=== PATIENT | female | born 1995 | race Caucasian/White ===

== ENCOUNTER 2019-05-07 11:26 | Emergency (ER) | payer BC ==
[~2019-05-07] VITALS: Ht 160 cm; Wt 50.1 kg
[2019-05-07 11:30] VITALS: Ht 160 cm; Wt 50.1 kg
[2019-05-07] MEDS ORDERED: LORA0.5T PO (12:41)
[2019-05-07] MEDS ORDERED: TEMA15CA6 PO (12:41)
[2019-05-07] MEDS ORDERED: DEXM10TA PO (12:41)
[2019-05-07] MEDS ORDERED: DEXM20CP PO (12:41)
[2019-05-07] MEDS ORDERED: NORE1TAB12 PO (12:41)
[2019-05-07 13:16] VITALS: BP 126/79; PULSE 79; RESP 16
--- NOTE | 2019-05-07 13:33 | ERD ---
ER Documentation Chief Complaint Chief Complaint TOOK 4 RESTORIL AND 3 OTC SLEEPING MEDS AND IS HAVING HALLUCINATIONS NOW HPI Patient is a 23-year-old female with depression and anxiety who presents with an accidental overdose. She said that she took her 3 tablets of Restoril at 11:30 PM last night to go to sleep. This is her usual dose. She could not sleep and so at 3:30 AM she took 4 [id number] "sleep meds" but she does not know what medications they were. This morning she started with visual and audio hallucinations. She is still feeling the effects of the medicine and feels like her body feels heavy and that she is having trouble regulating the volume of her voice. She denies suicidal or homicidal ideation. She does want to sleep this was not a suicide attempt. Upon review of old medical records this is the patient's first visit to the emergency department. Her primary doctor is Dr. Christina Mckeon and she does have a psychiatrist. ROS All systems reviewed and are negative except as per history of present illness. Medications Home Meds Reported Medications Noreth A-Et Estra/Fe Fumarate (LO LOESTRIN FE 1-10 TABLET) 1 Each Tablet, 1 TAB PO DAILY, TAB 05/07/19 Lorazepam* (Lorazepam*) 0.5 Mg Tablet, 0.5 MG PO HS PRN for ANXIETY, TAB 05/07/19 Temazepam* (Restoril*) 15 Mg Capsule, 15 MG PO HS PRN for INSOMNIA, CAP 05/07/19 Dexmethylphenidate Hcl (Focalin) 10 Mg Tablet, 10 MG PO TID, TAB 05/07/19 Dexmethylphenidate Hcl (Focalin Xr) 20 Mg Cpmp.50.50, 20 MG PO DAILY, #30 CAP 05/07/19 Allergies Allergies: Coded Allergies: No Known Allergy (Unverified , 05/07/19) PMhx/Soc History of Surgery: Yes (BRAIN TUMOUR REMOVAL ) Anesthesia Reaction: No Hx Neurological Disorder: Yes (BRAIN TUMOUR ) Hx Respiratory Disorders: No Hx Cardiac Disorders: No Hx Psychiatric Problems: Yes (ANXIETY , DEPRESSION ) Hx Miscellaneous Medical Probl: No Hx Alcohol Use: No Hx Substance Use: No Hx Tobacco Use: No Smoking Status: Never smoker FmHx Family History: No diabetes Physical Exam Vitals Vital Signs Date Temp Pulse Resp B/P (MAP) Pulse Ox O2 O2 Flow FiO2 Time Delivery Rate 7/29/19 98.1 79 16 126/79 100 Room Air 13:16 (95) 05/07/19 99.1 71 16 148/91 100 11:30 (110) Physical Exam Const: No acute distress Head: Atraumatic Eyes: Normal Conjunctiva ENT: Normal External Ears, Nose and Mouth. Neck: Full range of motion. No meningismus. Resp: Clear to auscultation bilaterally Cardio: Regular rate and rhythm, no murmurs Abd: Soft, non tender, non distended. Normal bowel sounds Skin: No petechiae or rashes Back: No midline or flank tenderness Ext: No cyanosis, or edema Neur: Awake and alert Psych: Normal Mood and Affect, negative for suicidal or homicidal ideation Result Diagram: 05/07/19 1231 05/07/19 1231 Results 24 hrs Laboratory Tests Test 05/07/19 12:22 05/07/19 12:31 05/07/19 12:36 Urine Opiates Screen Negative Urine Barbiturates Negative Urine Amphetamines Screen Negative Urine Benzodiazepines Screen Positive Urine Cocaine Screen Negative Urine Cannabinoids Positive White Blood Count 7.2 10^3/ul Red Blood Count 4.16 10^6/ul Hemoglobin 13.7 g/dl Hematocrit 41.1 % Mean Corpuscular Volume 98.8 fl Mean Corpuscular Hemoglobin 32.9 pg Mean Corpuscular 33.3 g/dl Hemoglobin Concent Red Cell Distribution Width 11.5 % Platelet Count 203 10^3/UL Mean Platelet Volume 9.6 fl Immature Granulocytes % 0.300 % Neutrophils % 63.8 % Lymphocytes % 25.1 % Monocytes % 5.0 % Eosinophils % 4.7 % Basophils % 1.1 % Nucleated Red Blood Cells % 0.0 /100WBC Immature Granulocytes # 0.020 10^3/ul Neutrophils # 4.6 10^3/ul Lymphocytes # 1.8 10^3/ul Monocytes # 0.4 10^3/ul Eosinophils # 0.3 10^3/ul Basophils # 0.1 10^3/ul Nucleated Red Blood Cells # 0.0 10^3/ul Sodium Level 141 mmol/L Potassium Level 4.5 mmol/L Chloride Level 108 mmol/L Carbon Dioxide Level 24 mmol/L Anion Gap 9 Blood Urea Nitrogen 10 mg/dl Creatinine 0.93 mg/dl Est Glomerular Filtrat Rate mL/min > 60 mL/min Glucose Level 79 mg/dl Calcium Level 9.7 mg/dl Total Bilirubin 0.9 mg/dl Direct Bilirubin 0.00 mg/dl Indirect Bilirubin 0.9 mg/dl Aspartate Amino Transf (AST/SGOT) 46 IU/L Alanine 49 IU/L Aminotransferase (ALT/SGPT) Alkaline Phosphatase 47 IU/L Total Protein 7.8 g/dl Albumin 4.5 g/dl Globulin 3.30 g/dl Albumin/Globulin Ratio 1.36 Salicylates Level < 1.0 mg/dl Acetaminophen Level < 10.0 ug/ml Ethyl Alcohol Level < 10.0 mg/dl POC Beta HCG, Qualitative NEGATIVE Procedures/MDM Smoking Cessation Therapy: Pt. was lectured for greater than 3 minutes on the health risks of continued smoking and the benefits of cessation. Patient is a 23-year-old female with depression and anxiety who presents with accidental overdose. I believe her hallucinations are associated with the [id number] sleep medications that she took. The patient had laboratory studies which were normal. I spoke with poison control who said that the ove [id number] medicines may have contained antihistamine which could cause hallucinations and that of her laboratory studies were negative and her symptoms were improved she could be discharged. Her symptoms were improving in the emergency department and she will be discharged with her stepfather. She can return for any worsening symptoms. Departure Diagnosis: Primary Impression: Accidental overdose Encounter type: initial encounter Qualified Codes: T50.901A - Poisoning by unspecified drugs, medicaments and biological substances, accidental (unintentional), initial encounter Additional Impression: Hallucinations Condition: Fair Patient Instructions: Insomnia, Overdose, Accidental (Adult) Referrals: Your psychiatrist Additional Instructions: Call your primary care doctor TOMORROW for an appointment during the next 1-2 days.See the doctor sooner or return here if your condition worsens before your appointment time. MICHELLE TUCKER MD May 07, 2019 13:32
== END 2019-05-07 13:17 | disposition home or self-care (01) ==
LOC: E/R 11:26
DX: T42.4X1A Poisoning by benzodiazepines, accidental (unintentional), initial encounter (principal); R44.3 Hallucinations, unspecified; Z85.841 Personal history of malignant neoplasm of brain
CPT/HCPCS: 80053; 80307; 81025; 85025; 99283